=== PATIENT | female | born 1960 | race Caucasian/White ===

== ENCOUNTER 2018-09-24 09:36 | Inpatient (IN) | payer MEDICAID, SELFPAY ==
[2018-09-09 09:44] VITALS: BMI 25.4
[2018-09-24] VITALS (16 sets, daily range): BP systolic 105–142; BP diastolic 42–85; PULSE 77–97; RESP 12–22; TEMP 36.2–37.6; O2SAT 93–100; BMI 28.6
--- NOTE | 2018-09-24 | DI.RAD.S_ITS ---
PROCEDURE: XR HIP W PEL IF DONE LT 2V INDICATIONS: LEFT HIP REPLACEMENT TECHNIQUE: AP pelvis and lateral view of the left hip acquired. COMPARISON: None. FINDINGS: Bones: Patient is status post left hip arthroplasty, with hardware components in expected positions. The hip joint appears congruent. The visualized bony structures appear intact. Small 6 mm bone fragment noted adjacent to the medial margin of the proximal left femur. Soft tissues: Overlying postoperative changes are noted. No suspicious soft tissue densities. IMPRESSION: Expected postsurgical change for left hip arthroplasty. Dictated by: Fernanda Rapp MD, PhD on 09/24/2018 at 18:19 Approved by: Fernanda Rapp MD, PhD on 09/24/2018 at 18:20
--- NOTE | 2018-09-24 06:00 | DI.RAD.S_ITS ---
PROCEDURE: XR PELVIS 1-2V INDICATIONS: Postop left total hip TECHNIQUE: 1 view of the lower pelvis acquired. COMPARISON: None. FINDINGS: Bones: Intraoperative images for post left hip arthroplasty, with hardware components in expected positions. The hip joint appears congruent. The visualized bony structures appear intact. Soft tissues: Overlying postoperative changes are noted. No suspicious soft tissue densities. IMPRESSION: Expected changes for left hip total arthroplasty. Dictated by: Fernanda Rapp MD, PhD on 09/24/2018 at 17:25 Approved by: Fernanda Rapp MD, PhD on 09/24/2018 at 17:26
[2018-09-24] MEDS: ACETAMINOPHEN 325 MG TABLET 975 MG PO ×2 (11:27→21:21)
[2018-09-24] MEDS: LACTATED RINGERS 1,000 ML 42 ML IV (11:27)
[2018-09-24] MEDS: CELECOXIB 200 MG CAPSULE PO (11:28)
[2018-09-24] MEDS: PREGABALIN 75 MG CAPSULE PO (11:28)
[2018-09-24] MEDS: VANCOMYCIN 1,000 MG/200 ML FROZ.PIGGY 200 MG IV (13:09)
[2018-09-24] MEDS: CEFAZOLIN 2 GM/100 ML FROZ.PIGGY IV ×2 (14:10→21:21)
--- NOTE | 2018-09-24 14:16 | PM.PREOP ---
Pre-operative Note Interval Note History & Physical reviewed/Exam performed by Physician: Yes Changes to H&P: No
[2018-09-24] MEDS: TRANEXAMIC ACID 1,000 MG VIAL 1000 MG INJ (14:20)
--- NOTE | 2018-09-24 14:23 | P.OP_ITS ---
Operative Date/Time/Diagnoses Date of procedure: 09/24/18 Time of procedure: 14:16 Pre-op diagnosis: left hip OA Post-op diagnosis: same Procedure & Clinicians Procedure: left total hip arthroplasty Same procedure as scheduled: Yes Indications: The patient has had progressively worsening left hip pain with radiographic changes consistent with arthritis. Non-operative management has failed and the patient has requested total hip replacement. The risks, benefits and alternatives to surgery were discussed with the patient prior to proceeding. Risks discussed included, but were not limited to, failure to relieve pain, leg length discrepancy, dislocation, stiffness, infection, nerve damage, deep venous thrombosis, pulmonary embolism, stroke, coma, heart attack, permanent paralysis and , as well as the potential need for eventual revision of the prosthetic. Surgeon: Debbie Owusu Clinical Support Specialist: Emilia Dong Anesthesia Type: General and Spinal Operative Notes Findings: Severe left hip osteoarthritis, adequate stability Closure Type: primary Specimen(s): none sent Prosthetic devices, grafts, tissues, transplants, or devices: Owusu and Nephew R3 48, anthology standard offset size 4, 32 +0 Estimated Blood Loss (mL): 250 Blood products transfused: none Procedure in detail: The patient was brought to the operating room. Patient was carefully positioned in the supine position on the [place] table. Time-out was performed and antibiotics were given. Anesthesia was induced. The left lower lower extremity was prepped and draped in a standard sterile fashion. An anterior left hip incision was made 1 fingerbreadth lateral to the anterior superior iliac spine and extended distally towards the greater trochanter. Dissection was carried out through skin and subcutaneous tissues. The skin and subcutaneous tissues were carefully injected with Lidocaine with epi. Superficial hemostasis was achieved. The fascia over the tensor fascia johnnie was defined and incised with a knife. Two Allis clamps were used to grasp the fascia. Tensor fascia johnnie was retracted laterally. A gelpi retractor was placed. Dissection was carried out down along the neck. The circumflex vessels were carefully identified and cauterized with the Aqua Mantis. There was good visualization of the femoral neck. A Cobra was placed superior to the neck and the gluteus fibers were carefully stripped from that superior aspect of the capsule. A 2nd retractor was placed along the inferior aspect of the neck. The rectus insertion along the capsule was partially released. A 3rd retractor that was then gently placed over the rim of the acetabulum under the rectus. Capsule was carefully incised and released from the intertrochanteric line circumferentially superior to the mid sagittal line and inferiorly to the mid sagittal line until the lesser trochanter was palpable. A tag stitch was placed both in the superior and inferior limb of the capsular insertion. Along the acetabulum capsule was also released up to the mid sagittal 12:00 position. A portion of the labrum was resected. A saw was used to perform an osteotomy at the level of the intertrochanteric line and the junction of the superior femoral neck leaving approximately 1 finger breath of residual inferior neck above the lesser trochanter. A 2nd cut was made along the femoral neck at the base of the head and a napkin ring of neck was removed. Corkscrew was placed in the femoral head and the head was removed without difficulty. Retractors were then repositioned around the acetabulum. Residual labrum was resected and additional osteophytes were removed. A reamer that was 4 mm below the templated size was placed by hand in the acetabulum and it was reamed to centralize the acetabulum. It was then reamed up to 2 under the templated size and fluoroscopy was brought in to confirm the position of the reaming and depth of reaming. I reamed 1 under the anticipated size and touched the rim with line to line reaming. A trial cup was placed and noted that it was appropriately sized and fluoroscopy confirmed position and depth. The component was open and inserted without difficulty fluoroscopic imaging was used to confirm that the cup had been adequately seated and was well positioned. Neutral poly trial liner was placed. The cup was tested and noted to be stable. Attention was then directed to the femur. The hook was carefully placed around the femur. The femur was gently hyperextended additional capsular release was performed as needed in order to allow adequate visualization of the proximal femur with elevation of the femur. Patient was placed in a hyperextended slightly abducted position with maximum external rotation. Box osteotome was used to check for any residual neck as well as sclerotic bone along the trochanter. [place] pepper was placed in the femur. Additional broaching was performed. Canal finder was used to determine the alignment of the canal and position. Size 1 broach was placed. The canal was then appropriately broached up to the templated size as long as there was adequate stability of the broach and serial advancement of the broach without excessive impingement. Specific attention was directed at avoiding varus attempting to direct the distal aspect of the broach more anteriorly and avoiding excessive anteversion. Trial reduction showed acceptable range of motion, good stability, no posterior impingement, shinto of leg length and appropriate lateral shuck. I also flexed the hip and checked that there was no impingement anteriorly and there was good stability with flexion, abduction and internal rotation. Marcaine and Exparel were injected.. The stem was placed without difficulty. Repeat trial reduction and x-ray showed acceptable overall position, length, and no evidence of the femoral fracture. Final head was placed. Wound was meticulously irrigated with normal saline. The hip was reduced and additional Exparel and Marcaine were injected. The capsule was closed with interrupted nonabsorbable sutures. The fascia of the tensor was closed with interrupted and running Vicryl. No drain was placed. Any tensor fascia johnnie muscle that appeared to be contused or injured which was a minimal amount was carefully resected. Capsule around the tensor was injected with Exparel and Marcaine. The skin was closed with barbed stitches for the subcutaneous tissue and skin. We also used surgical glue. The wound was dressed sterilely. Brief Betadine soak was also used and was meticulously irrigated with normal saline. Patient was transferred to recovery room in satisfactory condition. Complications: none Condition: stable Disposition: Acute Care Plan for aftercare: The patient will be maintained on a standard total hip replacement protocol with weight bearing as tolerated and anterior hip precautions. The patient will receive Aspirin and sequential compression devices for DVT prophylaxis. The patient will be discharged home when safe for the home environment.
[2018-09-24] MEDS: BUPIVACAINE 0.25% W/ EPI VIAL 50 ML INJ (15:04)
[2018-09-24] MEDS: BUPIVACAINE LIPOSOME 266 MG/20 ML VIAL INJ (15:04)
[2018-09-24] MEDS: fentaNYL 100 MCG/2 ML INJ 50 MCG IV ×3 (17:45→18:10)
[2018-09-24] MEDS: HYDROMORPHONE 2 MG INJ 0.5 MG IV ×3 (17:50→18:05)
[2018-09-24] MEDS: LACTATED RINGERS 1,000 ML 125 ML IV (19:04)
[2018-09-24] MEDS: OXYCODONE IR 5 MG TABLET PO ×2 (19:04→22:03)
[2018-09-24] MEDS: HYDROMORPHONE PCA (6MG/30ML) 6 MG/30 ML PCA.VIAL IV ×2 (20:09→22:03)
[2018-09-24] MEDS: ZOLPIDEM 5 MG TABLET 10 MG PO (21:21)
[2018-09-24] MEDS: DOCUSATE 100 MG CAPSULE PO (21:21)
[2018-09-24] MEDS: ASPIRIN EC 81 MG TABLET PO (21:21)
[2018-09-24] MEDS: ONDANSETRON 4 MG ODT PO (23:49)
--- NOTE | 2018-09-25 | PC.NURSE ---
Addendum entered by Joyce Kumar R.N. 09/25/18 06:13: Patient states she slept for brief period of time. Remains emotionally labile, crying one minute and almost euphoric the next. Found trying to take her gown off and digging through bag for personal clothing item and was going to put on my tank top. Discussed difficulty with wearing her own clothing while still on IV fluid. Earlier had wanted to put panties on and had forgotten she had a catheter in. Used 5.9mg of Dilaudid CAN PATCHER this shift with FLACC score of 3 but when asked stated pain is 8/10 and starts crying. 250cc UOP this shift. No further emesis noted but patient states she has had additional emesis but none found in room. Original Note: Addendum entered by Joyce Kumar R.N. 09/25/18 04:07: Vomited some chunks of copper colored material which tested guaiac positive. After, patient denied feeling nauseated but then within few minutes vomited up 150cc brown fluid which appeared to have some sediment in it. Patient states it is due to her Lyme disease and the emesis materal contains a fungus. Was obsessive about viewing the emesis with a flashlight and then wanted to keep it in a bag. Informed her of need to dispose of emesis per regulations and patient agreeable. Did medicate with IV Zofran and took all food away except for ice chips and will continue to reassess and progress diet as tolerated. Original Note: Addendum entered by Joyce Kumar R.N. 09/25/18 02:49: In room crying. States she is unable to get any sleep (already had Yessiien earlier). Wants Percocet so provided information on CAN PATCHER vs po pain medications. Requested CAN PATCHER be stopped so she could take Percocet so was told that could be done except she has Oxycodone ordered. She then requested that she receive 10mg of Oxycodone rather than the ordered 5mg but was told that would not be possible without MD order. Encouraged her to continue to use CAN PATCHER as can have a maximum of 6mg/4h and has only used 3.4mg at this time. Patient then apologized for being grumpy. Ice pack applied for additional comfort. Will continue to monitor for uncontrolled pain and contact MD again (was spoken to by evening RN who received CAN PATCHER order) if pain unmanageable with current regimen. Patient verbalizes understanding. Original Note: Addendum entered by Joyce Kumar R.N. 09/25/18 00:04: Call light on and found liquid on floor which patient states is vomit. Provided emesis bag and floor cleansed. Instructed to go slow with liquids and avoid solid foods until nausea subsides. Will continue to monitor. Original Note: Patient is alert and oriented. Breath sounds CTA with RA sat of 97%. HRR. Complains of nausea but then requesting sandwiches, grapefruit etc; medicated with SL Zofran. BT hypoactive but denies flatus; abdomen is soft. Indwelling catheter is patent; urine clear yellow. Able to move self in bed but has not been out of bed since surgery. Dressing to anterior left hip is CDI. CMS intact. Does complain of 6/10 pain; encouraged to use CAN PATCHER and reminded it is available q10 minutes. Wearing bilateral SCD's. Spouse rooming in. Reports multiple falls in past month so is high fall risk but refused to have yellow gown put on stating I'm not going to be tagged. Bed alarm is activated.
[2018-09-25] MEDS: LACTATED RINGERS 1,000 ML 125 ML IV (03:08)
[2018-09-25 03:10] VITALS: BP 132/82; PULSE 85; RESP 17; TEMP 36.9; O2SAT 97
[2018-09-25] MEDS: HYDROMORPHONE PCA (6MG/30ML) 6 MG/30 ML PCA.VIAL IV (03:50)
[2018-09-25] MEDS: ONDANSETRON 4 MG/2 ML INJ IV (03:54)
[2018-09-25] MEDS: CEFAZOLIN 2 GM/100 ML FROZ.PIGGY IV (06:00)
[2018-09-25 07:03] LABS: Hematocrit 31.1 % (36-46); Hemoglobin 10.6 g/dL (12.0-16.0)
--- NOTE | 2018-09-25 07:38 | P.DS_ITS ---
History of Present Illness Date Patient Seen: 09/25/18 Chief complaint: 10382 Left Total Hip Arthroplasty Narrative: Patient is seen bedside status post left anterior total hip arthroplasty with Dr. Owusu on 09/24/2018. Patient is postoperative day 1. Patient is doing well, she did have pain over night however DECORATING MACHINE TENDER was ordered and this made her comfortable. She has a history of chronic pain management and has been taking oxycodone/Tylenol daily for quite some time. She does complain of nausea and vomiting. Overnight nurse did state that the vomiting was guaiac positive however her H&H is stable and is showing no signs of active bleeding. Positive test could be related to trauma to the airway during surgery or from violent emesis. General surgery guidelines recommend medical managment and follow up outpatient. Discharge Providers Date of admission: 09/24/18 09:36 Discharge Date: 09/25/18 Primary care physician: Jocelyn Johns PA-C Consults: 09/24/18 06:00 Consult to Anesthesiology Routine Comment: Consulting Provider: Anesthesiologist Reason for consultation: Regional block for post operative pain control 09/24/18 18:48 Consult to Discharge Planning Routine Comment: Consult to Physical Therapy Evaluate & Treat Comment: Physician Instructions: post op LASHELL protocol Consult to Respiratory Therapy Evaluate & Treat Comment: Physician Instructions: Evaluate and treat Discharge provider: Emilia Dong PA-C Summary Discharge Diagnosis: left hip osteoarthritis Hospital Course: Patient was admitted to the hospital s/p L. anterior LASHELL with Dr. Owusu on 09/24/18. Patient tolerated the procedure well with no major complications. She was transitioned to the acute care floor and placed on the standard joint replacement pathway and protocol. She did have some vomiting post-operatively that was guaiac positive, but this could be related to trauma from airway management during surgery or from violent emesis. She denies abdominal pain or dark, tarry stools. She should follow up with her PCP for further management. Patient was on chronic pain management through her PCP. However, patient's current pain is not controlled by her baseline dose of oxycodone/APAP 5-325 mg. In addition, patient states that her PCP tore up her pain contract and will no longer be prescribing her medications. She was notified of the risks of use, safe and secure storage, and proper disposal of narcotics. Patient was screened for risks of overdose and found to be of [id number] risk. However, the b enefits of treating her pain currently outweigh the risks. The JAVA SOFTWARE was checked. A prescription for Narcan was given. Patient was advised not to take sedatives while using narcotics. Patient elicited understanding of her treatment plan and agreed to this information. Status at Discharge Cognitive/behavioral status at discharge: Patient is alert & oriented x3. Functional status at discharge: uses cane/walker Overall status at discharge: patient is progressing back to baseline Time Spent with Patient Less than 30 minutes Exam Vital Signs (past 8 hours): - 09/25/18 03:10 Temperature 98.5 F Pulse Rate 85 Respiratory Rate 17 Blood Pressure 132/82 Pulse Oximetry 97 Oxygen Delivery Method Room Air Oxygen Flow Rate 0 Narrative Exam Narrative: Well-developed well-nourished no acute distress alert and oriented however is slightly somnolent on examination. She answers questions appropriately but was falling asleep sitting up while I was in the room. Dres sing is clean dry and intact. Moore catheter is still in place at this time. She has full range of motion of the knees and ankle. She is neurovascularly intact left lower extremity. Objective Labs Result Diagrams: 09/25/18 06:30 Labs: Laboratory Results - last 24 hr 09/25/18 06:30 Hgb 10.6 L Hct 31.1 L Discharge Plan Discharge Plan Patient Disposition: Home Discharge Med Rec/Prescriptions Prescriptions: New aspirin 81 mg Tablet,Delayed Release (Dr/Ec) 81 mg PO BID Qty: 0 RF: 0 docusate sodium 100 mg Capsule 100 mg PO BID Qty: 0 RF: 0 Narcan 4 mg/actuation spray,non-aerosol 1 spray NASAL Q2M PRN (Reason: opioid overdose) Qty: 2 RF: 0 sucralfate 1 gram Tablet 1 gm PO ACHS Qty: 120 RF: 0 hydromorphone 2 mg Tablet 2 mg PO Q4-6H PRN (Reason: Pain, Moderate (4-6)) Qty: 40 RF: 0 hydroxyzine pamoate 25 mg Capsule 25 mg PO Q4HR PRN (Reason: Nausea) Qty: 0 RF: 0 pantoprazole [Protonix] 40 mg tablet,delayed release (DR/EC) 40 mg PO DAILY Qty: 30 RF: 0 Continued oxycodone-acetaminophen [Percocet] 5-325 mg Tablet 1 tab PO TID RF: 0 zolpidem 10 mg Tablet 10 mg PO BEDTIME RF: 0 acetaminophen [Tylenol] 325 mg Capsule 650 mg PO TID RF: 0 cetirizine 10 mg Tablet 10 mg PO DAILY RF: 0 Follow up/Referrals: Debbie Owusu MD [Physician] - (Follow up with the office in 5-7 days at your previously scheduled post-op appointment.) Jocelyn Johns PA-C [Primary Care Provider] - (For evaluation of GI upset.) Provider Discharge Instructions Diet: Diet as Tolerated Activity: Weightbearing as tolerated, follow anterior hip precautions Cold/Heat Therapy: Apply ice 20 minutes at a time at least hourly while awake. Skin/Wound/Dressing Care Report to your healthcare provider any signs of infection, such as:: chills, fever, night sweats, increased pain, unusual drainage and unusual redness Dressing: Keep dressing clean, dry, and intact. May shower with it in place but no soaking. Visit Report/Discharge Packet Instructions: DI for Hip Replacement Stand Alone Forms: Surgery Discharge Visit Report Forms: Stroke Signs & Symptoms Discharge Data Primary Care Provider: Jocelyn Johns Attending Provider: Debbie Owusu Admit Date/Time: 09/24/18 09:36
[2018-09-25 08:05] VITALS: BP 115/41; PULSE 108; RESP 20; TEMP 36.9; O2SAT 92
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
--- NOTE | 2018-09-25 09:39 | PT.IIE ---
Current Diagnoses Unilateral primary osteoarthritis, left hip (09/24/18) Surgery Performed Operation Date: 09/24/18 12:15 Actual Procedures p Total Hip Arthroplasty/Anterior Approach(Left) - Debbie Owusu MD Surgical History (Last Updated 09/09/18 @ 10:23 by Melissa Green RN) History of ankle surgery (Acute) Hx of foot surgery (Acute) Hx of tonsillectomy (Acute) Medical History (Last Updated 09/09/18 @ 10:23 by Melissa Green RN) Acid reflux (Acute) Anxiety (Acute) Depression (Acute) Edema (Acute) H/O: hysterectomy (Acute ~2006) Lyme disease (Acute ~2016) Migraines (Acute) Multiple thyroid nodules (Acute) Numbness and tingling (Acute) Osteoarthritis (Acute) PTSD (post-traumatic stress disorder) (Acute) Psoriasis (Acute) Psoriatic arthritis (Acute) Right patella fracture (Acute) Seasonal allergies (Acute) Physical Therapy Inpatient Evaluation/Re-Eval M1 PT/OT-IP Prior Functional Status Start: 09/25/18 10:14 Freq: NEEDED Status: Active Protocol: Document 09/25/18 09:39 AB (Rec: 09/25/18 10:25 AB [id number]) Medical Review Prior Functional Status Medical History Reviewed Yes Communication drowsy but able to make needs known Mobility and Gait per boyfriend: pt is independent with all mobilities and ambulation without AD Social History Household Members significant other Living Arrangements House Number of Floors (Floors) One Floor Number of Stairs To Enter/Railing? 2 steps to enter without rails Home Environment Standard Height Toilet Walk in Shower Home Equipment Four Wheel Walker Raised Toilet Seat Without Armrests Employment Status Unemployed M2 PT-IP Current Condition Start: 09/25/18 10:14 Freq: NEEDED Status: Active Protocol: Document 09/25/18 09:39 AB (Rec: 09/25/18 10:25 AB [id number]) Physical Therapy Current Condition Current Condition Evaluation Date 09/25/18 Treatment Diagnosis s/p L LASHELL anterior approach; difficulty in walking Onset Date 09/24/18 Precautions Anterior Hip Precautions No Hip Extension No Hip External Rotation Other Precautions Falls Weight Bearing Status Weight Bearing Status Weight Bear as Tolerated M3 PT-IP Subjective Start: 09/25/18 10:14 Freq: NEEDED Status: Active Protocol: Document 09/25/18 09:39 AB (Rec: 09/25/18 10:25 AB [id number]) Subjective Physical Therapy Visit Type Type Initial Evaluation Visit Start Time 09:39 Visit Stop Time 10:10 Total Visit Minutes 31 Number of TIE INSPECTOR Visits 0 Physical Therapy Visit Comments Patient Comments I need to pee Therapy Pain Assessment Pain When Pain Assessed At Rest Pain Present Pain Present Pain Reported Location Left Hip Intensity 7 Scale Used Numeric (1 - 10) Pain Management Techniques Apply Cold Distraction Re-positioning Timing of Activity with Medications M4 PT-IP Mobility and Gait Start: 09/25/18 10:14 Freq: NEEDED Status: Active Protocol: Document 09/25/18 09:39 AB (Rec: 09/25/18 10:25 AB [id number]) PT-Bed Mobility Assessment Supine to Sit Supine to Sit Standby Assistance Sit to Supine Sit to Supine Standby Assistance Scooting Scooting to Edge of Bed Standby Assistance PT-Transfer Assessment Sit to and From Stand Sit to and from Stand Contact Guard Assistance 1 Person Assistance Use of Upper Extremities Equipment Transfer Assistive Device Gait Belt Front Wheeled Walker Orthotic/Prosthetic Devices or Brace: No Transfers Transfer Destination Toilet Transfer Technique pt ambulated to the toilet using FWW Transfer Ability Level of Assist Contact Guard Assistance Comments Mobility Comments pt ambulated to the toilet using FWW CGA. pt was able to complete toileting SBA. pt ambulated to the chair using FWW ~ 8 ft and rested but refused to stay up on chair and wants to go back to bed. pt ambulated to the bed using FWW CGA ~ 12 ft. Gait Assessment Gait Gait Assistance Required: Contact Guard Assist Distance (Feet) 15 Able to Maintain Weight Bearing Status Yes During Gait Assistive Devices Assistive Device Gait Belt Front Wheeled Walker Orthotic/Prosthetic Devices or Brace: No Gait Deviations General Gait Pattern Antalgic Decreased Stride Length Decreased Feet Clearance Factors Limiting Gait Function Factors Limiting Gait Function Decreased Activity Tolerance Decreased Strength Limited Range of Motion Pain Poor Balance Poor Safety Awareness PT-Balance Assessment Sitting Balance and Reactions Static Sitting Balance Ability Good Dynamic Sitting Balance Ability Good Standing Balance and Reactions Static Standing Balance Ability Fair Dynamic Standing Balance Ability Fair Device Used FWW M5 PT-IP Objective Assessments Start: 09/25/18 10:14 Freq: NEEDED Status: Active Protocol: Document 09/25/18 09:39 AB (Rec: 09/25/18 10:25 AB [id number]) Orientation Orientation/Cognition Level of Alertness Confusional State Orientation Name Place Situation Safety Awareness Decreased Safety Awareness Memory Description Short Term Impaired Assisted Impaired Gross Range of Motion Lower Extremity ROM Assessment Left Impaired Strength Lower Extremity Strength Assessment Left Impaired Knee 4-/5 Coordination Assessment Gross Coordination Gross Coordination WNL Sensation Assessment Sensation Gross Sensation WNL Muscle Tone Muscle Tone WNL Yes M6 PT-IP Treatment Start: 09/25/18 10:14 Freq: NEEDED Status: Active Protocol: Document 09/25/18 09:39 AB (Rec: 09/25/18 10:25 AB [id number]) Physical Therapy Treatment Education Education Provided Precautions Weight Bearing Status Post-Op Packet Safety Other Treatments Other Treatment Performed educated significant other regarding pt's precautions and how to assist pt. will conduct more caregiver training next tx session. M7 PT-IP Assessment and Plan Start: 09/25/18 10:14 Freq: NEEDED Status: Active Protocol: Document 09/25/18 09:39 AB (Rec: 09/25/18 10:25 AB [id number]) PT Summary Assessment and Plan Potential Rehabilitation Potential Fair Status of Condition at Evaluation Evolving Summary Impairments Pain ROM Strength Balance Coordination Sensation Tone Cognition Bed Mobility Transfers Gait Activity Tolerance Assessment Summary pt requiring CGA with mobility and will have significant other to assist her at home. will have to conduct caregiver training and stair climbing training prior to d/c. pt stated that she is set up for outpt PT. Goals Bed Mobility Goal Independent Transfer Goal Independent Front Wheeled Walker Four Wheeled Walker Gait Goal Independent Front Wheel Walker Four Wheel Walker Gait Distance 150 Days to Meet Goals 3 Frequency of Treatment Frequency Of Treatment Twice a Day Treatment Plan Physical Therapy Treatment Plan Bed Mobility Training Transfer Training Gait Training Therapeutic Exercise Balance Retraining Post Op Education Discharge Planning Hot or Cold Pack Neuromuscular Re-ed Coordination Retraining Manual Therapy Other Recommendations and Next Treatment caregiver training, stair Focus climbing training Recommendations To Nursing Amount of Assist Needed 1 Person Assist Discharge Recommendations PT Discharge Recommendations Home with 24/ Assist Outpatient PT Equipment Needed for Home Before FWW if not safe with 4WW Discharge
[2018-09-25] MEDS: HYDROMORPHONE 4 MG TABLET PO ×3 (09:46→16:00)
[2018-09-25] MEDS: ACETAMINOPHEN 325 MG TABLET 975 MG PO ×2 (10:32→14:55)
[2018-09-25] MEDS: LORATADINE 10 MG TABLET PO (10:33)
[2018-09-25] MEDS: hydrOXYzine pamoate 25 MG CAPSULE PO (10:33)
[2018-09-25] MEDS: SUCRALFATE 1 GM TABLET PO (10:34)
[2018-09-25] MEDS: DOCUSATE 100 MG CAPSULE PO (10:34)
[2018-09-25] MEDS: PANTOPRAZOLE 40 MG TABLET PO (10:34)
[2018-09-25 12:22] VITALS: BP 105/71; PULSE 109; RESP 18; TEMP 36.8; O2SAT 96
[2018-09-25] MEDS: ASPIRIN EC 81 MG TABLET PO (12:29)
[2018-09-25] MEDS: ONDANSETRON 4 MG ODT PO (12:31)
--- NOTE | 2018-09-25 13:43 | PT.IPTN ---
Current Diagnoses Unilateral primary osteoarthritis, left hip (09/24/18) Surgery Performed Operation Date: 09/24/18 12:15 Actual Procedures p Total Hip Arthroplasty/Anterior Approach(Left) - Debbie Owusu MD Physical Therapy Treatment Note M2 PT-IP Current Condition Start: 09/25/18 10:14 Freq: NEEDED Status: Active Protocol: Document 09/25/18 09:39 AB (Rec: 09/25/18 10:25 AB [id number]) Physical Therapy Current Condition Current Condition Evaluation Date 09/25/18 Treatment Diagnosis s/p L LASHELL anterior approach; difficulty in walking Onset Date 09/24/18 Precautions Anterior Hip Precautions No Hip Extension No Hip External Rotation Other Precautions Falls Weight Bearing Status Weight Bearing Status Weight Bear as Tolerated M3 PT-IP Subjective Start: 09/25/18 10:14 Freq: NEEDED Status: Active Protocol: Document 09/25/18 13:43 AB (Rec: 09/25/18 16:46 AB [id number]) Subjective Physical Therapy Visit Type Type Treatment Note Visit Start Time 13:43 Visit Stop Time 14:32 Total Visit Minutes 49 Number of ARCHITECTURE INSTRUCTOR Visits 0 Physical Therapy Visit Comments Patient Comments pt agreeable to do PT Therapy Pain Assessment Pain When Pain Assessed At Rest Pain Present Pain Present Pain Reported Location Left Hip Scale Used pain scale not stated Pain Management Techniques Apply Cold Re-positioning Timing of Activity with Medications M4 PT-IP Mobility and Gait Start: 09/25/18 10:14 Freq: NEEDED Status: Active Protocol: Document 09/25/18 13:43 AB (Rec: 09/25/18 16:46 AB [id number]) PT-Bed Mobility Assessment Supine to Sit Supine to Sit Standby Assistance Sit to Supine Sit to Supine Standby Assistance Scooting Scooting to Edge of Bed Standby Assistance PT-Transfer Assessment Sit to and From Stand Sit to and from Stand Standby Assistance Contact Guard Assistance Equipment Transfer Assistive Device Gait Belt 4 Wheeled Walker Orthotic/Prosthetic Devices or Brace: No Comments Mobility Comments Caregiver training conducted. spouse was able to put safety belt on pt. educated on how to assist pt with bed mobility , transfers and ambulation using 4WW. Gait Assessment Gait Gait Assistance Required: Contact Guard Assist Distance (Feet) 75 Able to Maintain Weight Bearing Status Yes During Gait Assistive Devices Assistive Device Gait Belt 4 Wheeled Walker Orthotic/Prosthetic Devices or Brace: No Gait Deviations General Gait Pattern Antalgic Decreased Stride Length Decreased Feet Clearance Step-to Gait Factors Limiting Gait Function Factors Limiting Gait Function Decreased Activity Tolerance Decreased Strength Difficulty Following Directions Limited Range of Motion Pain Poor Balance Poor Safety Awareness Comments Gait Comments pt ambulated with significant other in hallway using FWW ~ 75 ft CGA. sigficant other was able to safety assist pt. Stair Climbing Assessment Evaluation Level of Assist On Stairs Moderate Assistance Maximal Assistance 1 Person Assistance Devices Stair Climbing Assistive Devices Straight Cane Technique/Endurance Stair Climbing Direction Ascend and Descend Stair Climbing Technique Step to Step Number of Steps Climbed 2 Query Text: Stair Climbing Set # Repetitions (reps) 2 Comments Stair Climbing Comments educated pt and spouse on how to do up/down steps without rails. pt uses SPC R side and CAREER COORDINATOR from spouse on L side. pt was able to complete up/ down steps with spouse assisting her. M5 PT-IP Objective Assessments Start: 09/25/18 10:14 Freq: NEEDED Status: Active Protocol: Document 09/25/18 09:39 AB (Rec: 09/25/18 10:25 AB [id number]) Orientation Orientation/Cognition Level of Alertness Confusional State Orientation Name Place Situation Safety Awareness Decreased Safety Awareness Memory Description Short Term Impaired Snf Impaired Gross Range of Motion Lower Extremity ROM Assessment Left Impaired Strength Lower Extremity Strength Assessment Left Impaired Knee 4-/5 Coordination Assessment Gross Coordination Gross Coordination WNL Sensation Assessment Sensation Gross Sensation WNL Muscle Tone Muscle Tone WNL Yes M6 PT-IP Treatment Start: 09/25/18 10:14 Freq: NEEDED Status: Active Protocol: Document 09/25/18 13:43 AB (Rec: 09/25/18 16:46 AB [id number]) Physical Therapy Treatment Education Education Provided Precautions Weight Bearing Status Safety M7 PT-IP Assessment and Plan Start: 09/25/18 10:14 Freq: NEEDED Status: Active Protocol: Document 09/25/18 13:43 AB (Rec: 09/25/18 16:46 AB [id number]) PT Summary Assessment and Plan Potential Rehabilitation Potential Fair Summary Impairments Pain ROM Strength Balance Coordination Sensation Tone Cognition Bed Mobility Transfers Gait Activity Tolerance Progress Towards Goals Slow Progress due to Pain Assessment Summary caregiver training conducted and spouse was able to assist pt safely with bed mobility, transfers, ambulation using 4WW. stair climbing also conducted and spouse was able to assist pt. pt stated that she will borrow her mom's SPC to do the stairs. pt may go home with 24/7 assist and outpt PT when medically stable . Goals Bed Mobility Goal Independent Transfer Goal Independent Four Wheeled Walker Gait Goal Independent Four Wheel Walker Gait Distance 150 Days to Meet Goals 3 Frequency of Treatment Frequency Of Treatment Twice a Day Treatment Plan Physical Therapy Treatment Plan Bed Mobility Training Transfer Training Gait Training Therapeutic Exercise Balance Retraining Post Op Education Discharge Planning Hot or Cold Pack Neuromuscular Re-ed Coordination Retraining Manual Therapy Other Recommendations and Next Treatment caregiver training, stair Focus climbing training Recommendations To Nursing Amount of Assist Needed 1 Person Assist Discharge Recommendations PT Discharge Recommendations Home with 24/7 Assist Outpatient PT
--- NOTE | 2018-09-25 15:05 | PT.IPTN ---
Current Diagnoses Unilateral primary osteoarthritis, left hip (09/24/18) Surgery Performed Operation Date: 09/24/18 12:15 Actual Procedures p Total Hip Arthroplasty/Anterior Approach(Left) - Debbie Owusu MD Physical Therapy Treatment Note M2 PT-IP Current Condition Start: 09/25/18 10:14 Freq: NEEDED Status: Active Protocol: Document 09/25/18 09:39 AB (Rec: 09/25/18 10:25 AB [id number]) Physical Therapy Current Condition Current Condition Evaluation Date 09/25/18 Treatment Diagnosis s/p L LASHELL anterior approach; difficulty in walking Onset Date 09/24/18 Precautions Anterior Hip Precautions No Hip Extension No Hip External Rotation Other Precautions Falls Weight Bearing Status Weight Bearing Status Weight Bear as Tolerated M3 PT-IP Subjective Start: 09/25/18 10:14 Freq: NEEDED Status: Active Protocol: Document 09/25/18 15:05 AB (Rec: 09/25/18 16:46 AB [id number]) Subjective Physical Therapy Visit Type Type Treatment Note Visit Start Time 15:05 Visit Stop Time 15:44 Total Visit Minutes 39 Number of CHIEF LIFESTYLE OFFICER Visits 0 Physical Therapy Visit Comments Patient Comments pt agreeable to do PT Therapy Pain Assessment Pain When Pain Assessed At Rest Pain Present Pain Present Pain Reported Location Left Hip Scale Used pain scale not stated Pain Management Techniques Apply Cold Re-positioning Timing of Activity with Medications M4 PT-IP Mobility and Gait Start: 09/25/18 10:14 Freq: NEEDED Status: Active Protocol: Document 09/25/18 15:05 AB (Rec: 09/25/18 16:46 AB [id number]) PT-Bed Mobility Assessment Supine to Sit Supine to Sit Standby Assistance Sit to Supine Sit to Supine Standby Assistance Scooting Scooting to Edge of Bed Standby Assistance PT-Transfer Assessment Sit to and From Stand Sit to and from Stand Standby Assistance Contact Guard Assistance Equipment Transfer Assistive Device Gait Belt 4 Wheeled Walker Orthotic/Prosthetic Devices or Brace: No Comments Mobility Comments Caregiver training conducted. spouse was able to put safety belt on pt. educated on how to assist pt with bed mobility , transfers and ambulation using 4WW. Gait Assessment Gait Gait Assistance Required: Contact Guard Assist Distance (Feet) 75 Able to Maintain Weight Bearing Status Yes During Gait Assistive Devices Assistive Device Gait Belt 4 Wheeled Walker Orthotic/Prosthetic Devices or Brace: No Gait Deviations General Gait Pattern Antalgic Decreased Stride Length Decreased Feet Clearance Step-to Gait Factors Limiting Gait Function Factors Limiting Gait Function Decreased Activity Tolerance Decreased Strength Difficulty Following Directions Limited Range of Motion Pain Poor Balance Poor Safety Awareness Comments Gait Comments pt ambulated with significant other in hallway using FWW ~ 75 ft CGA. sigficant other was able to safety assist pt. Stair Climbing Assessment Evaluation Level of Assist On Stairs Moderate Assistance Maximal Assistance 1 Person Assistance Devices Stair Climbing Assistive Devices Straight Cane Technique/Endurance Stair Climbing Direction Ascend and Descend Stair Climbing Technique Step to Step Number of Steps Climbed 2 Query Text: Stair Climbing Set # Repetitions (reps) 2 Comments Stair Climbing Comments educated pt and spouse on how to do up/down steps without rails. pt uses SPC R side and DEBONE PROCESSING SUPERVISOR from spouse on L side. pt was able to complete up/ down steps with spouse assisting her. M5 PT-IP Objective Assessments Start: 09/25/18 10:14 Freq: NEEDED Status: Active Protocol: Document 09/25/18 09:39 AB (Rec: 09/25/18 10:25 AB [id number]) Orientation Orientation/Cognition Level of Alertness Confusional State Orientation Name Place Situation Safety Awareness Decreased Safety Awareness Memory Description Short Term Impaired Residential Impaired Gross Range of Motion Lower Extremity ROM Assessment Left Impaired Strength Lower Extremity Strength Assessment Left Impaired Knee 4-/5 Coordination Assessment Gross Coordination Gross Coordination WNL Sensation Assessment Sensation Gross Sensation WNL Muscle Tone Muscle Tone WNL Yes M6 PT-IP Treatment Start: 09/25/18 10:14 Freq: NEEDED Status: Active Protocol: Document 09/25/18 15:05 AB (Rec: 09/25/18 16:46 AB [id number]) Physical Therapy Treatment Education Education Provided Precautions Weight Bearing Status Safety M7 PT-IP Assessment and Plan Start: 09/25/18 10:14 Freq: NEEDED Status: Active Protocol: Document 09/25/18 15:05 AB (Rec: 09/25/18 16:46 AB [id number]) PT Summary Assessment and Plan Potential Rehabilitation Potential Fair Summary Impairments Pain ROM Strength Balance Coordination Sensation Tone Cognition Bed Mobility Transfers Gait Activity Tolerance Progress Towards Goals Slow Progress due to Pain Assessment Summary caregiver training conducted and spouse was able to assist pt safely with bed mobility, transfers, ambulation using 4WW. stair climbing also conducted and spouse was able to assist pt. pt stated that she will borrow her mom's SPC to do the stairs. pt may go home with 24/7 assist and outpt PT when medically stable . Goals Bed Mobility Goal Independent Transfer Goal Independent Four Wheeled Walker Gait Goal Independent Four Wheel Walker Gait Distance 150 Days to Meet Goals 3 Frequency of Treatment Frequency Of Treatment Twice a Day Treatment Plan Physical Therapy Treatment Plan Bed Mobility Training Transfer Training Gait Training Therapeutic Exercise Balance Retraining Post Op Education Discharge Planning Hot or Cold Pack Neuromuscular Re-ed Coordination Retraining Manual Therapy Other Recommendations and Next Treatment caregiver training, stair Focus climbing training Recommendations To Nursing Amount of Assist Needed 1 Person Assist Discharge Recommendations PT Discharge Recommendations Home with 24/7 Assist Outpatient PT
--- NOTE | 2018-09-25 16:09 | CM.DANOTE ---
Discharge Planning/Care Management DCP: assessment: Case received, EMR reviewed and d/c order for home noted by Shamika BROWN Emilia: 0800 this morning. At that point pt had not yet had a Pt eval. Met this afternoon with pt and her partner Javier. Introduced self and role. Pt is a 57 year old female who admitted for a planned LTHA yesterday: Surgeon: Dr. Owusu. PCP: Jocelyn Johns. Pt confirms she will be seeing Jocelyn in followup after this stay. Payer: Medicaid Pt does confirm her plan is for home later today about 5 with Javier to help her. Javier confirmed same. Pt has her walker in her room and Javier has obtained a cane. Pt did spend most of this discussion talking rapidly about her many medical issues but after a reportedly emotionally labile day she seems at ease at this time with her d/c plan for home this evening. She expressed thankfulness for the visit. Will have followup as per othopedic team plan. CM Discharge Assessment Start: 09/25/18 16:07 Freq: Status: Active Protocol: Document 09/25/18 16:07 ITV (Rec: 09/25/18 16:09 ITV [id number]) Discharge Planning Assessment Advance Directives? No History Provided By Patient Prior Living Arrangements House Household Members significant other Comment Javier Staton: he confirms he will be assisting pt during her recovery. Review Status In Process Next Review Type Continued Stay Review Pre-Anesthesia Assessment Start: 09/09/18 09:44 Freq: Status: Complete Protocol: Document 09/09/18 09:44 CAB (Rec: 09/09/18 10:39 CAB [id number]) Pre-Anesthesia Assessment Patient Information Reviewed Via Phone Assessment Assessment Completed With Patient Diagnostic Results BMP/CMP CBC EKG Primary Care Provider Jocelyn Johns Seen Specialist in Last 12 Months Yes Specialist Seen Orthopedist Primary Language Kuwaiti Sewer Hand Required No Height 154.94 cm Weight 61.235 kg Body Mass Index (BMI) 25.4 Hearing Ability Normal Visual Impairment No Limitations Visual Assist None Dentition Type Teeth, Natural Present Teeth, Missing Barriers to Learning None Other Aids No Hx Anesthesia Reactions No Hx Family Anesthesia Reaction No Hx Malignant Hyperthermia No Hx Blood Transfusions Yes: r/t hysterectomy Anesthesia Review Requested No Biometric Technician No alcohol intake former Alcohol Intake Frequency Other: Stopped for surgery and use of pain meds 04/2018 Smoking Status Current some day smoker Substance Use Type marijuana Comment Advised pt not to smoke marijuana 24 hours prior to surgery Pain Present Pain Reported Musculoskeletal Symptoms Abnormal Gait Difficulty Walking Joint Pain Neck Pain Numbness Tingling History of Falling (Recent or History of Yes ) Patient is completely paralyzed or No completely immobile Mental Status Oriented to own ability Is patient on oxygen? No Does patient have NI/SOB No Hx Sleep Apnea No Currently Taking a Beta Mira No Can You Climb a Flight of Stairs Without Yes SOB Hx Chest Pain No Hx SOB No Hx Syncope or Dizziness No Anti-Coagulant Therapy No Has a Field Account Director No Cardiac Testing No Hx Pacemaker/ICD No Pacemaker Rep Required? No Cardiac Clearance Received Not Applicable Diet Type At Home Regular Low Carb dysphagia No Comment No dairy, no sugar Urinary Catheter Present No Hx Urinary Self Catheterization No Diabetes No HgbA1C 5.2 Date 08/20/18 Patient No Lactating No Hx Drug Resistant Organism No Presence of External or Internal Medical No Devices Have you traveled outside the [facility] in the last 30 days? Marital Status Lives With significant other Prior Living Arrangements House Number of Floors (Floors) One Floor Number of Stairs To Enter/Railing? 1 step Support System Child/Children Friend(s) Significant Other Does the Patient Have Assistance After Yes Surgery Patient Discharge Plan Description Return Home Comment Pt not advised on length of stay per surgeon's office Feels Safe in Current Environment Yes Been Physically Hurt or Threatened By a No Person in Current Environment Do you have thoughts of harming yourself None or others? Are you currently considering suicide? No Do you have a plan to hurt yourself or No Plan others? Do You Have Any Spiritual Beliefs That No May Affect Your HC Choices? Do You Have Any Cultural Practices That No May Affect Your HC Choices? Spiritual Referral None Who Can We Speak to About Patient's Care Family, friends Identifying Code for Release of Patient Declines to issue Information Health Care Proxy/Next of Kin Justo (son) Health Care Proxy Emergency Contact Name Javier (S.O.) Emergency Contact Advance Directives? No: Declines further information PAC Instructions Do not shave/clip surgical site Durable medical equipment Medications to take/avoid Nasal antibiotic No ETOH/petroleum product on skin DOS NPO Post-op transportation Pre-surgical wash Sturdy shoes/comfortable clothes Do not bring valuables and remove jewelry
--- NOTE | 2018-09-25 16:49 | PC.NURSE ---
Pt. understood discharge teaching, was sent home with medication prescriptions, and all items. Pt. and significant other were educated about the use of Narcan for overdose as well as signs and symptoms of stroke. Pt's significant other is bringing her home.
== END 2018-09-25 16:50 | disposition home or self-care (01) | DRG 470 ==
PROVIDERS: Admitting Provider Orthopaedic Surgery; Family Provider Physician Assistant; PCP Physician Assistant; Visit Provider Orthopaedic Surgery
PROC: 0SRB02Z Replacement of Left Hip Joint with Metal on Polyethylene Synthetic Substitute, Open Approach (ICD-10-PCS; CPT 27130; principal; 2018-09-24 12:15)
DX: M16.12 Unilateral primary osteoarthritis, left hip (principal); F43.12 Post-traumatic stress disorder, chronic; F44.9 Dissociative and conversion disorder, unspecified; R11.2 Nausea with vomiting, unspecified; Z87.891 Personal history of nicotine dependence
CPT/HCPCS: 36415; 72170; 73502; 85014; 85018; 97162; 97530; C1776; C9290; J0690; J1170; J2250; J2405; J2704; J3010; J3370